=== PATIENT | female | born 1990 | race Hispanic/Latino ===

== ENCOUNTER 2025-04-21 22:44 | Emergency (ER) | payer BC, OTHER, SELFPAY ==
[2025-04-22] MEDS ORDERED: FAMOTIDINE 20 MG/2 ML VIAL IV ONE (00:43)
[2025-04-22] MEDS ORDERED: NA CHLORIDE 0.9% 1,000 ML ONE (00:43)
[2025-04-22] MEDS ORDERED: KETOROLAC 30 MG/ML INJ ONE (00:43)
[2025-04-22] MEDS ORDERED: ONDANSETRON 4 MG/2 ML VIAL ONE (00:43)
[2025-04-22 01:20] LABS: Absolute Lymphocytes (CBC) 1.9 K/uL (0.7-4.9); Hematocrit 40.2 % (36.0-45.0); Hemoglobin 13.1 g/dL (12.0-15.0); MCH 26.7 pg (27.0-35.0); MCHC 32.6 g/dL (32.0-36.0); MCV 82.2 fL (80-100); MPV 8.0 fL (7.6-11.3); Nucleated RBC Absolute Count 0.0 (0-0); Nucleated Red Blood Cells % 0.1 % (0-0); RBC Red Blood Cell Count 4.89 M/uL (3.86-4.86); White Blood Count 7.20 thou/uL (4.3-10.9)
[2025-04-22 01:22] LABS: Sqamous Epithelial <5 /HPF (None Seen); Urine Culture Reflex Order NOT NEEDED; Urine Microscopic Reflex YN ORDER UMIC
[2025-04-22 01:28] LABS: ALT/SGPT 36 U/L (13-56); Albumin 3.4 g/dL (3.4-5.0); Albumin/Globulin Ratio 0.9 (1.1-1.8); Alkaline Phosphatase 83 U/L (45-117); Anion Gap 7.5 mEq/L (5.0-15.0); BUN Blood Urea Nitrogen 9 mg/dL (7-18); Globulin 3.9 g/dL (2.3-3.5); Glucose Level 76 mg/dL (74-106); Lipase 17 U/L (13-75); Potassium 3.5 mEq/L (3.5-5.1)
[2025-04-22 01:32] LABS: AST/SGOT < 10 U/L (15-37)
--- NOTE | 2025-04-22 04:51 | ER ---
Nurse's Notes [facility] Name: Josselyn Patton Age: 35 yrs Sex: Female : 1990 Arrival Date: 04/21/2025 Time: 22:44 Bed 11 Private MD: Diagnosis: Acute Left Lower abdominal pain Presentation: 04/21 23:10 Chief complaint: Patient states: I have been nauseous since Monday. I tried to go to [facility] the restroom today and nothing happened. My last BM was on Monday. Coronavirus screen: At this time, the client does not indicate any symptoms associated with coronavirus-19. Ebola Screen: No symptoms or risks identified at this time. Initial Sepsis Screen: Does the patient meet any 2 criteria? No. Patient's initial sepsis screen is negative. Does the patient have a suspected source of infection? No. Patient's initial sepsis screen is negative. Risk Assessment: Do you want to hurt yourself or someone else? Patient reports no desire to harm self or others. Onset of symptoms was April 19, 2025. Transition of care: patient was not received from another setting of care. 23:10 Method Of Arrival: Ambulatory [facility] 23:10 Acuity: ISAURO 3 jb4 Triage Assessment: 23:12 General: Appears in no apparent distress. uncomfortable, Behavior is calm, cooperative, jb4 appropriate for age. Pain: Complains of pain in abdomen Pain does not radiate. Pain currently is 5 out of 10 on a pain scale. Quality of pain is described as stabbing, Pain began 2-3 days ago. Neuro: Level of Consciousness is awake, alert, obeys commands, Oriented to person, place, time, situation. Cardiovascular: Patient's skin is warm and dry. Respiratory: Airway is patent Respiratory effort is even, unlabored, Respiratory pattern is regular, symmetrical. GI: Abdomen is flat, non-distended, Abd is soft X 4 quads Abdomen is tender to palpation X 4 quads. Derm: Skin is intact, Skin is pink, warm \T\ dry. Musculoskeletal: Circulation, motion, and sensation intact. Range of motion: intact in all extremities. PBX INSPECTOR: 23:12 LMP 03/25/2025, unknown jb4 Historical: - Allergies: 23:12 No Known Allergies; jb4 - PMHx: 23:12 None; jb4 - PSHx: 23:12 x2; jb4 - Immunization history:: Adult Immunizations up to date. - Infectious Disease History:: Denies. - Social history:: Smoking status: Patient denies any tobacco usage or history of. - Family history:: not pertinent. Screenin/21 01:00 [facility] ED Fall Risk Assessment (Adult) History of falling in the last 3 months, jj7 including since admission No falls in past 3 months (0 pts) Confusion or Disorientation No (0 pts) Intoxicated or Sedated No (0 pts) Impaired Gait No (0 pts) Mobility Assist Device Used No (0 pt) Altered Elimination No (0 pt) Score/Fall Risk Level 0 - 2 = Low Risk Oriented to surroundings, Maintained a safe environment, Educated pt \T\ family on fall prevention, incl call for assistance when getting out of bed, Assessed \T\ reinforced patient's understanding of fall precautions. Abuse screen: Denies threats or abuse. Nutritional screening: No deficits noted. Tuberculosis screening: No symptoms or risk factors identified. Assessment: 01:00 Reassessment: ASSUMED CARE OF PT. PT SITTING IN BED. VS STABLE. CALL DALEY IN REACH. jj7 General: Appears in no apparent distress. comfortable, Behavior is calm, cooperative, appropriate for age. Pain: Complains of pain in left upper quadrant and left lower quadrant Pain currently is 5 out of 10 on a pain scale. GI: Abdomen is flat, Bowel sounds present X 4 quads. Abd is soft X 4 quads Abdomen is tender to palpation in left upper quadrant and left lower quadrant Reports lower abdominal pain, upper abdominal pain, nausea. : Denies burning with urination. 02:00 Reassessment: Patient states feeling better. Patient states symptoms have improved. jj7 03:00 Reassessment: Patient appears in no apparent distress at this time. jj7 04:57 General: Appears in no apparent distress. comfortable, Behavior is calm, cooperative. kd3 Neuro: Level of Consciousness is awake, alert, obeys commands, Oriented to person, place, time, situation. Cardiovascular: Capillary refill < 3 seconds Patient's skin is warm and dry. Respiratory: Airway is patent Trachea midline Respiratory effort is even, unlabored, Respiratory pattern is regular, symmetrical. Vital Signs: 04/21 23:10 BP 123 / 56; Pulse 84; Resp 16; Temp 97.8(O); Pulse Ox 98% on R/A; Weight 90.72 kg; jb4 Height 5 ft. 2 in. (R); Pain 5/10; 04/22 01:00 BP 117 / 72; Pulse 72; Resp 20; Pulse Ox 97% ; jj7 02:00 BP 97 / 47; Pulse 82; Resp 20; Pulse Ox 100% ; jj7 03:00 BP 96 / 49; Pulse 62; Resp 18; Pulse Ox 98% ; jj7 04:58 BP 96 / 62; Pulse 71; Resp 16; Pulse Ox 99% on R/A; kd3 04/21 23:10 Body Mass Index 36.58 (90.72 kg, 157.48 cm) jb4 04/21 23:10 Pain Scale: Adult jb4 ED Course: 04/21 22:45 Patient arrived in ED. mr 22:48 Tate Aidee[facility] kb 22:48 Loy العلي MD is Attending Physician. kb 23:11 Triage completed. jb4 23:12 Arm band placed on right wrist. jb4 23:22 Radiology exam delayed due to lab results not completed at this time. (BUN/Creatinine) nj test not completed at this time. IV insertion attempt and/or patient not having appropriate IV at this time. 04/22 01:00 Patient has correct armband on for positive identification. Bed in low position. Call jj7 light in reach. Provided Education on: USE OF CALL DALEY. Warm blanket given. 01:00 Inserted saline lock: 20 gauge in right forearm, using aseptic technique. Blood jj7 collected. Flushed with 10 mL NS. 01:05 Jocelyn Hurst, RN is Primary Nurse. jj7 01:05 UA Rfx Jaydon Cult if indicated Sent. jj7 01:06 CBC with Diff Sent. jj7 01:06 CMP Sent. jj7 01:06 Lipase Sent. jj7 01:06 Test, Urine Sent. jj7 02:19 CT Abd/Pelvis - IV Contrast Only In Process Unspecified. EDMS 04:49 Loy العلي MD is Referral Physician. sp4 04:57 No provider procedures requiring assistance completed. IV discontinued, intact, kd3 bleeding controlled, No redness/swelling at site. Pressure dressing applied. Administered Medications: 01:05 Drug: Famotidine IVP 20 mg IVP once; dilute with 10 mL 0.9% NaCl; give over 2 minutes jj7 Route: IVP; Site: right forearm; 02:01 Follow up: Response: Marked relief of symptoms jj7 01:05 Drug: TORadol - Ketorolac IVP 15 mg IVP once Route: IVP; Site: right forearm; jj7 02:02 Follow up: Response: Marked relief of symptoms; Pain is decreased j 01:05 Drug: Ondansetron IVP 4 mg IVP once; over 2 minutes Route: IVP; Site: right forearm; jj7 02:02 Follow up: Response: Marked relief of symptoms 01:05 Drug: NS 0.9% IV 1000 ml IV at 1 bolus Per protocol; to be given as a bolus over 60 jj7 minutes Route: IV; Rate: 1 bolus; Site: right forearm; 02:01 Follow up: IV Status: Completed infusion Medication: 01:00 VIS not applicable for this client. 7 Outcome: 04:51 Discharge ordered by . sp4 04:57 Discharged to home ambulatory, with friend, kd3 04:57 Condition: stable 04:57 Discharge instructions given to patient, family, Instructed on discharge instructions, follow up and referral plans. Demonstrated understanding of instructions, follow-up care, 04:58 Patient left the ED. kd3 Signatures: Dispatcher [employer] EDIA Aidee Ybarra, TRANSCRIPTER-C TRANSCRIPTER-CkCassy Myers, [facility] Reg Walt Adams RN RN jb4 Claudio Lucas Kyli, RN RN kd3 Jocelyn Hurst RN RN jj7 Loy العلي MD MD sp4
--- NOTE | 2025-04-22 04:51 | EDPHYS ---
Physician Documentation [facility] Name: Josselyn Patton Age: 35 yrs Sex: Female : 1990 Arrival Date: 04/21/2025 Time: 22:44 Bed 11 Private MD: ED Physician Loy لاعلي HPI: 04/21 23:37 This 35 yrs old Female presents to ER via Ambulatory with complaints of kb Abdominal Pain. 23:37 Patient is a 35-year-old female presents for upper abdominal pain that started today. kb Reports she has had nausea since Monday. Denies fever, vomiting, diarrhea. Last bowel movement was on Monday. States her children have had nausea and vomiting as well.. PLAN CHECKER: 23:12 LMP 03/25/2025, unknown jb4 Historical: - Allergies: 23:12 No Known Allergies; jb4 - PMHx: 23:12 None; jb4 - PSHx: 23:12 x2; jb4 - Immunization history:: Adult Immunizations up to date. - Infectious Disease History:: Denies. - Social history:: Smoking status: Patient denies any tobacco usage or history of. - Family history:: not pertinent. ROS: 23:37 Constitutional: As per HPI kb 04/22 05:03 All other systems are negative, sp4 Exam: 04/21 23:37 Constitutional: This is a well developed, well nourished patient who is awake, alert, kb and in no acute distress. Head/Face: Normocephalic, atraumatic. ENT: Moist Mucous membranes Cardiovascular: Regular rate Respiratory: Respirations even and unlabored. No increased work of breathing. Talking in full sentences Skin: Warm, dry with normal turgor. Normal color. MS/ Extremity: Pulses equal, no cyanosis. Neurovascular intact. Full, normal range of motion. Neuro: Awake and alert, GCS 15, oriented to person, place, time, and situation. Abdomen/GI: Inspection: abdomen appears normal, Bowel sounds: normal, Palpation: soft, in all quadrants, mild abdominal tenderness, in the right upper quadrant, moderate abdominal tenderness, in the left upper quadrant and left lower quadrant, 04/22 05:03 Constitutional: This is a well developed, well nourished patient who is awake, alert, sp4 and in no acute distress. Head/Face: Normocephalic, atraumatic. Eyes: Pupils equal round and reactive to light, extra-ocular motions intact. Lids and lashes normal. Conjunctiva and sclera are not injected. Cornea within normal limits. Periorbital areas with no swelling, redness, or edema. ENT: Nares patent. No nasal discharge, no septal abnormalities noted. Tympanic membranes are normal and external auditory canals are clear. Oropharynx with no redness, swelling, or masses, exudates, or evidence of obstruction, uvula midline. Mucous membranes moist. Neck: Trachea midline, no thyromegaly or masses palpated, and no cervical lymphadenopathy. Supple, full range of motion without nuchal rigidity, or vertebral point tenderness. Chest/axilla: Normal chest wall appearance and motion. Nontender with no deformity. No lesions are appreciated. Cardiovascular: Regular rate and rhythm with a normal S1 and S2. No gallops, murmurs, or rubs. No pulse deficits. Respiratory: Lungs have equal breath sounds bilaterally, clear to auscultation and percussion. No rales, rhonchi or wheezes noted. No increased work of breathing, no retractions or nasal flaring. Abdomen/GI: Soft, with normal bowel sounds. No distension or tympany. No guarding or rebound. No evidence of tenderness throughout. Back: No spinal tenderness. No costovertebral tenderness. Skin: Warm, dry with normal turgor. Normal color with no rashes, no lesions, and no evidence of cellulitis. MS/ Extremity: Pulses equal, no cyanosis. Neurovascular intact. Full, normal range of motion. Neuro: Awake and alert, GCS 15, oriented to person, place, time, and situation. Cranial nerves II-XII grossly intact. Motor strength 5/5 in all extremities. Sensory grossly intact. Vital Signs: 04/21 23:10 BP 123 / 56; Pulse 84; Resp 16; Temp 97.8(O); Pulse Ox 98% on R/A; Weight 90.72 kg; jb4 Height 5 ft. 2 in. (R); Pain 5/10; 04/22 01:00 BP 117 / 72; Pulse 72; Resp 20; Pulse Ox 97% ; jj7 02:00 BP 97 / 47; Pulse 82; Resp 20; Pulse Ox 100% ; jj7 03:00 BP 96 / 49; Pulse 62; Resp 18; Pulse Ox 98% ; jj7 04:58 BP 96 / 62; Pulse 71; Resp 16; Pulse Ox 99% on R/A; kd3 04/21 23:10 Body Mass Index 36.58 (90.72 kg, 157.48 cm) jb4 04/21 23:10 Pain Scale: Adult jb4 MDM: 04/21 22:50 Medical Screening Exam initiated kb 04/22 05:03 Differential diagnosis: Endometriosis, gastritis, Hepatitis, Irritable bowel syndrome, sp4 pancreatitis. Data reviewed: vital signs, nurses notes, lab test result(s), electrolytes, hepatic panel. ED course: Patient tolerated p.o. intake and reported pain is completely resolved. Patient would like to go home at this time without knowing the CT report. We will proceed to the CT report and if there is any abnormality we'll contact patient home. . 04/21 23:12 Order name: CBC with Diff; Complete Time: 01:23 kb 04/21 23:12 Order name: CMP; Complete Time: 01:41 kb 04/21 23:12 Order name: Lipase; Complete Time: 01:41 kb 04/21 23:12 Order name: Test, Urine; Complete Time: 01:23 kb 04/21 23:12 Order name: UA Rfx Jaydon Cult if indicated; Complete Time: 01:23 kb 04/21 23:12 Order name: CT Abd/Pelvis - IV Contrast Only; Complete Time: 14:49 kb 04/21 23:12 Order name: IV Saline Lock; Complete Time: 01:06 kb 04/21 23:12 Order name: Labs collected and sent; Complete Time: 01:06 kb Administered Medications: 01:05 Drug: Famotidine IVP 20 mg IVP once; dilute with 10 mL 0.9% NaCl; give over 2 minutes jj7 Route: IVP; Site: right forearm; 02:01 Follow up: Response: Marked relief of symptoms jj7 01:05 Drug: TORadol - Ketorolac IVP 15 mg IVP once Route: IVP; Site: right forearm; jj7 02:02 Follow up: Response: Marked relief of symptoms; Pain is decreased jj7 01:05 Drug: Ondansetron IVP 4 mg IVP once; over 2 minutes Route: IVP; Site: right forearm; jj7 02:02 Follow up: Response: Marked relief of symptoms 01:05 Drug: NS 0.9% IV 1000 ml IV at 1 bolus Per protocol; to be given as a bolus over 60 jj7 minutes Route: IV; Rate: 1 bolus; Site: right forearm; 02:01 Follow up: IV Status: Completed infusion jj7 Disposition: 04:49 Co-signature as Attending Physician, Loy العلي MD I agree with the assessment sp4 and plan of care. I reviewed the patient's care provided by Advanced Practice Provider \T\ agree w/ the diagnosis \T\ care plan. I personally saw the pt \T\ performed a substantive portion of the visit, incldng all aspects of the (History/Exam/Medical Decision Making). Disposition Summary: 04/22/25 04:51 Discharge Ordered Notes: Location: Home sp4 Problem: new sp4 Symptoms: have improved sp4 Condition: Stable sp4 Diagnosis - Acute Left Lower abdominal pain sp4 Followup: sp4 - With: Loy العلي MD - When: 7 - 10 days - Reason: Recheck today's complaints Discharge Instructions: - Discharge Summary Sheet sp4 - Abdominal Pain, Adult, [id number] sp4 Forms: - Patient Portal Instructions sp4 Signatures: Dispatcher [employer] Aidee Schmidt, ASHLEY-C ACET[employer] PLANT OPERATOR-Walt Jacob RN RN jb4 Jocelyn Hurst RN RN jj7 Loy العلي MD MD sp4 Corrections: (The following items were deleted from the chart) 04/21 23:12 23:12 CBC+H.LAB.BRZ ordered. EDMS EDMS 23:12 23:12 COMPREHENSIVE METABOLIC PANEL+C.LAB.BRZ ordered. EDMS EDMS 23:12 23:12 LIPASE+C.LAB.BRZ ordered. EDMS EDMS 23:12 23:12 Test, Urine+UC.LAB.BRZ ordered. EDMS EDMS 23:12 23:12 UA Rfx Jaydon Cult if indicated+U.LAB.BRZ ordered. EDMS EDMS 23:13 23:12 Abdomen Pelvis W Con+CT.RAD.BRZ ordered. EDMS EDMS
--- NOTE | 2025-04-22 05:34 | RAD REPORT ---
CLINICAL HISTORY: Abd pain. COMPARISON: None. TECHNIQUE: CT ABDOMEN PELVIS WITH IV CONTRAST on 04/21/2025 11:12 PM CDT This exam was performed according to our departmental dose-optimization program, which includes autom ated exposure control, adjustment of the mA and/or kV according to patient size and/or use of iterative reconstruction technique. FINDINGS: Lower lungs are clear. Abdomen: Liver is fatty in attenuation. There is no biliary dilatation. Gallbladder is normal in appe arance. The pancreas and spleen are normal in appearance. The adrenal glands and kidneys are unremarkable. Abdominal aorta is normal in course and caliber without aneurysm. There is no free air. There is no r etroperitoneal adenopathy. Pelvis: There is no bowel obstruction. Urinary bladder is unremarkable. There is no free fluid. Uteru s is normal in size. Appendix is normal. Skeleton: There are no acute osseous findings. No suspicious bony lesions. IMPRESSION: No acute process. Electronically signed by: Salvador Berumen MD 04/22/2025 04:03 AM CDT RP Due to temporary technical issues with the PACS/[employer] reporting system, reports are being cong d by the in-house radiologist without review as a courtesy to ensure prompt reporting the interpreting radiologist is fully responsible for the content of the report. Transcribed Date/Time: 04/22/2025 5:34 AM
[2025-04-22 11:24] VITALS: TEMP 97.8
[2025-04-22 11:33] VITALS: BP 96/62; O2SAT 99
== END 2025-04-22 04:58 | disposition home or self-care (01) ==
LOC: ER 22:44
DX: R10.32 Left lower quadrant pain (principal)
CPT/HCPCS: 85025; 81001; 36415; 81025; 83690; 80053; 74177; Q9967; J1885; J2405; J7030; 96361; 96374; 96375; 99284